=== PATIENT | female | born 1970 | race Caucasian/White ===

== ENCOUNTER 2016-07-01 08:40 | Emergency (ER) | payer SELFPAY ==
[2016-07-01 08:54] VITALS: BP 143/83; PULSE 79; O2SAT 99
--- NOTE | 2016-07-01 09:00 | ERPHSYRPT ---
- History of Present Illness Time Seen by Provider: 07/01/16 08:51 Physician History: The patient is a 45-year-old female who is from [facility] and is visiting family locally. Yesterday she started to have a rash on her left side that stretches from mid back to underneath her left breast to the sternum. The rash is painful and it is increasing. She states it is the same as the past 2 episodes of shingles. She would have called her family doctor in [place] but he is on vacation for . Her past medical history is significant for shingles 2, hysterectomy, and Achilles tendon repair. Timing/Duration: yesterday Quality: painful Severity: moderate Location: torso Possible Causes: other (shingles) Associated Symptoms: rash Home Medications: No Home Meds 1 ea [facility] UD 07/01/16 [History] - Review of Systems Constitutional: No Fever, No Chills Eyes: No Symptoms Ears, Nose, & Throat: No Symptoms Respiratory: No Cough, No Dyspnea Cardiac: No Chest Pain, No Edema, No Syncope Abdominal/Gastrointestinal: No Abdominal Pain, No Nausea, No Vomiting, No Diarrhea Genitourinary Symptoms: No Dysuria Musculoskeletal: No Back Pain, No Neck Pain Skin: Rash Neurological: No Dizziness, No Focal Weakness, No Sensory Changes Psychological: No Symptoms Endocrine: No Symptoms Hematologic/Lymphatic: No Symptoms Immunological/Allergic: No Symptoms All Other Systems: Reviewed and Negative - Physical Exam General Appearance: no apparent distress, alert Eye Exam: PERRL/EOMI, eyes nml inspection Ears, Nose, Throat Exam: normal ENT inspection, pharynx normal, moist mucous membranes Neck Exam: normal inspection, non-tender, supple, full range of motion Respiratory Exam: normal breath sounds, lungs clear, No respiratory distress Cardiovascular Exam: regular rate/rhythm, normal heart sounds Gastrointestinal/Abdomen Exam: soft, mass, No tenderness Pelvic Exam: not done Rectal Exam: not done Back Exam: normal inspection Extremity Exam: normal inspection, normal range of motion Neurologic Exam: alert, oriented x 3, cooperative, normal mood/affect, sensation nml, No motor deficits Skin Exam: rash (Examination of the back and torso reveals a large dermatomal rash extending from the left mid back around the left lateral rib cage and under the breast to the sternum. The rash does not have any vesicular lesions at this time.) SpO2 Interpretation: normal Oxygen Delivery: Room Air - Progress Progress: unchanged Counseled pt/family regarding: diagnosis - Departure Time of Disposition: 09:05 Departure Disposition: Home Clinical Impression: Shingles Condition: Stable Critical Care Time: No Additional Instructions: You have another flareup of shingles. When the blisters show up, keep the area covered until the blisters have scabbed over and are no longer weeping. When the blisters are weeping, you are infectious from the fluid. Take acyclovir 800 mg 5 times a day for 5 days. Take Mcmechen one to 2 tablets every 4-6 hours as needed for pain. Take naproxen 500 mg twice a day as needed for pain. Prescriptions: Acyclovir 800 mg [Zovirax 800 mg] 800 mg PO 5XD #25 tablet Hydrocodone Bit/Acetaminophen [Mcmechen 5-325 Tablet] 1 each PO Q4-6HPRN PRN #12 tablet PRN Reason: Pain Naproxen 500 mg PO BID PRN #30 tablet.
== END 2016-07-01 09:18 | disposition home or self-care (01) ==
LOC: ED 08:40
DX: B02.9 Zoster without complications (principal)
CPT/HCPCS: 99281; 99282

== ENCOUNTER 2016-07-02 08:37 | Emergency (ER) | payer SELFPAY ==
--- NOTE | 2016-07-02 09:21 | ERPHSYRPT ---
- History of Present Illness Time Seen by Provider: 07/02/16 09:05 Source: patient Exam Limitations: no limitations Patient Subjective Stated Complaint: PT REPORTS DX WITH SHINGLES YESTERDAY- TAKEN RX PAIN MEDS BUT IS STILL IN PAIN-DENIES CHANGES Triage Nursing Assessment: PT PINK WARM ET [id number] EASY ET NONLABORED-NO BLISTERING NOTED Physician History: The patient is a 45-year-old female who I saw yesterday for a diagnosis of shingles on her left side of her trunk. The patient is visiting here from [facility]. She states this is the third time in the same area that she' s had shingles. She states her primary care physician in [place] is on vacation for the and is unable to be contacted. Yesterday I prescribed acyclovir 800 mg 5 times a day, naproxen 500 mg twice a day, and Beyer 06/08/24 one to 2 tabs every 4-6 hours area she returns today stating that the rash has spread, is darker, and her pain medicines are not working. She states she took only 4 of the Beyer was yesterday and that taking wanted to time did not help but taking 2 at a time did help some. Timing/Duration: yesterday Quality: burning, painful Severity: severe Location: torso Possible Causes: other (shingles) Associated Symptoms: rash Allergies/Adverse Reactions: tramadol [From Ultram] Allergy (Intermediate, Verified 07/02/16 08:52) Swelling Hx Tetanus, Diphtheria Vaccination/Date Given: No Hx Influenza Vaccination/Date Given: Yes Hx Pneumococcal Vaccination/Date Given: No Immunizations Up to Date: Yes - Review of Systems Constitutional: No Fever, No Chills Eyes: No Symptoms Ears, Nose, & Throat: No Symptoms Respiratory: No Cough, No Dyspnea Cardiac: No Chest Pain, No Edema, No Syncope Abdominal/Gastrointestinal: No Abdominal Pain, No Nausea, No Vomiting, No Diarrhea Genitourinary Symptoms: No Dysuria Musculoskeletal: No Back Pain, No Neck Pain Skin: Rash Neurological: No Dizziness, No Focal Weakness, No Sensory Changes Psychological: No Symptoms Endocrine: No Symptoms Hematologic/Lymphatic: No Symptoms Immunological/Allergic: No Symptoms All Other Systems: Reviewed and Negative - Past Medical History Pertinent Past Medical History: Yes Other Medical History: SHINGLES - Past Surgical History Past Surgical History: Yes Musculoskeletal: Orthopedic Surgery - Social History Smoking Status: Never smoker Exposure to second hand smoke: No Drug Use: none Patient Lives Alone: No - Nursing Vital Signs Nursing Vital Signs: Initial Vital Signs Temperature 98.2 F Temperature Source Oral Pulse Rate 70 Respiratory Rate 18 Blood Pressure [Right Arm] 147/91 Pain Intensity 8 - Physical Exam General Appearance: mild distress Eye Exam: PERRL/EOMI, eyes nml inspection Ears, Nose, Throat Exam: normal ENT inspection, pharynx normal, moist mucous membranes Neck Exam: normal inspection, non-tender, supple, full range of motion Respiratory Exam: normal breath sounds, lungs clear, No respiratory distress Cardiovascular Exam: regular rate/rhythm, normal heart sounds Gastrointestinal/Abdomen Exam: soft, mass, No tenderness Pelvic Exam: not done Rectal Exam: not done Back Exam: normal inspection, normal range of motion, No CVA tenderness, No vertebral tenderness Extremity Exam: normal inspection, normal range of motion Neurologic Exam: alert, oriented x 3, cooperative, normal mood/affect, sensation nml, No motor deficits Skin Exam: rash (Visual examination of the left trunk reveals an unchanged rash from yesterday. It is dermatomal distribution that extends from the mid left back around the lateral left ribs and under and including the lower part of the left breast. 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 Discontinue the use of the Beyer that you were given yesterday. Also discontinued the use of naproxen. Take Percocet one tablet every 4 hours as needed for pain. Take Toradol 10 mg every 6 hours as needed for pain. If the lesion/rash formes vesicles, keep the vesicles covered until completely healed. Follow-up as needed. Prescriptions: Oxycodone HCl/Acetaminophen [Percocet 5-325 mg Tablet] 1 each PO Q4H PRN PRN # 12 tablet PRN Reason: Pain Ketorolac Tromethamine [Toradol] 10 mg PO Q6H PRN PRN #16 tablet PRN Reason: Pain
[2016-07-02 09:40] VITALS: BP 137/88; PULSE 67; O2SAT 97
== END 2016-07-02 09:39 | disposition home or self-care (01) ==
LOC: ED 08:37
DX: B02.9 Zoster without complications (principal)
CPT/HCPCS: 99282